=== PATIENT | female | born 1995 | race Two or more races ===

== ENCOUNTER 2018-06-23 16:50 | Inpatient (IN) | payer OTHER ==
[~2018-06-23 16:50] MED LIST: ACETAMINOPHEN500 M2 PO; ALBUTEROL1.25 MG/3 IH; ASA-EC81 MG PO; ASA325 MG PO; ASA81 MG PO; ATORVASTATIN CA10 MG PO; BIAXIN500 MG PO; CECLOR250 MG PO; CIPRO100 MG PO; CIPRO250 MG PO; CIPRO500 MG PO; COMMODE; DEMEROL50 MG/ML IJ; DEMEROL50 MG/ML PO; DEPEN250 MG PO; DURICEF500 MG PO; FLOMAX PO; GUAIATUSSIN AC118 ML PO; KETO10TA2 PO; LEVAQUIN500 MG PO; LIPITOR20 MG PO; LOVAZA1 G PO; LOVENOX30 MG/0.3 {1, null}; LOVENOX40 MG/0.4 SUBCUTANEO; MAALOX ADVANCE355 ML PO; MAPAP22.4 MG/0. PO; NAPR500T14 PO; NAPROSYN125 MG/5 M PO; NORVASC2.5 M1 PO; NORVASC5 MG PO; PEPCID20 MG PO; PERCOCET 10-321 EACH PO; PERCOCET 5-3251 EACH PO; PERCOCET 5/3251 TAB PO; PREDNISOLO15 MG/5 ML PO; PRENATAL CAPLE1 EACH PO; PROMETHAZINE D118 ML PO; SULFAMETHOXAZOL1 TA1 PO; SYNTHROID50 MCG PO; TOBREX3.5 G1 OP; TORADOL60 MG PO; TRAMADOL HCL50 MG PO; TUSNEL CAPLET1 EACH PO; TYGACIL50 MG/VIAL IV; TYLENOL 8 HOUR650 MG PO; TYLENOL EXTRA500 MG PO; TYLENOL-CODEINE1 TA1 PO; TYLENOL100 MG/ML PO; TYLENOL325 MG PO; WHEELCHAIR; ZANTAC150 M1 PO; ZANTAC150 M3 PO; ZANTAC150 MG PO; ZOVIRAX PO; [UNRECOGNIZED DRUG - OTHER] PO
[2018-08-24] MEDS ORDERED: ACETAMINOPHEN650 MG PO (09:45)
[2018-08-24] MEDS ORDERED: TYLENOL EXTRA500 MG PO (09:48)
[2018-12-29] MEDS ORDERED: NAPR500T14 PO (15:51)
[2019-03-31] MEDS ORDERED: SINGULAIR10 MG PO (14:22)
[2019-03-31] MEDS ORDERED: ERYTHROMYCIN OPH1 GM OP (14:22)
[2019-06-08] MEDS ORDERED: AMOX1TAB5 PO (09:33)
== END 2019-05-27 15:51 | disposition home or self-care (01) | DRG 305 ==
LOC: OB/GYN 16:50 → LDR 07-29 08:33 → OB/GYN 07-29 09:39 → LDR 07-29 09:39 → OB/GYN 07-30 11:55 → LDR 08-03 09:22 → OB/GYN 08-03 11:19 → LDR 08-03 11:19 → OB/GYN 12-17 14:48
DX: I11.9 Hypertensive heart disease without heart failure (principal)

== ENCOUNTER → 2019-06-07 16:05 | Inpatient (IN) | payer OTHER ==
[~2019-06-07 16:05] MED LIST changes: +ACETAMINOPHEN650 MG PO; +AMOX1TAB5 PO; +AMOXICILLIN250 MG PO; +ERYTHROMYCIN OPH1 GM OP; +SINGULAIR 10MG10 MG PO; +SINGULAIR10 MG PO
== END | disposition home or self-care (01) | DRG 293 ==
LOC: MEDI 06-19 11:54 → EDBD 06-19 11:54 → SURH 06-19 11:54 → MEDI 06-25 10:14 → EDBD 07-17 15:14 → MEDI 12-26 10:42 → SURH 01-07 14:00 → OB/GYN 10-14 10:15
DX: I11.0 Hypertensive heart disease with heart failure (principal)

== ENCOUNTER 2019-07-23 17:17 | Emergency (ER) | payer OTHER | END 2019-07-23 17:24 | disposition left against medical advice (07) | LOC: ER 17:17 | DX: Z53.20 Procedure and treatment not carried out because of patient's decision for unspecified reasons (principal) ==

== ENCOUNTER 2019-10-14 15:56 | Inpatient (IN) | payer OTHER ==
[~2019-10-14 15:56] MED LIST changes: +PEPCID AC20 MG PO
[2020-03-01] MEDS ORDERED: ULTRAM50 MG PO (10:39)
[2020-03-01] MEDS ORDERED: CLARITIN10 MG PO (10:40)
== END 2020-04-24 08:39 | disposition home or self-care (01) | DRG 179 ==
LOC: OB/GYN 15:56 → EDBD 11-02 15:05 → OB/GYN 11-02 15:05 → PED 04-04 13:58 → OB/GYN 04-04 13:58 → EDBD 04-24 08:39 → EDSEX 04-24 08:39 → OB/GYN 04-24 08:39
PROC: 3E0F7GC Introduction of Other Therapeutic Substance into Respiratory Tract, Via Natural or Artificial Opening (ICD-10-PCS; principal; 2020-04-04)
DX: J15.5 Pneumonia due to Escherichia coli (principal)

== ENCOUNTER 2019-11-05 13:04 | Inpatient (IN) | payer OTHER ==
[2020-03-01] MEDS ORDERED: ULTRAM50 MG PO (10:39)
[2020-03-01] MEDS ORDERED: CLARITIN10 MG PO (10:40)
[2020-05-02] MEDS ORDERED: TOBREX3.5 G1 (15:18)
== END 2020-05-16 08:27 | disposition home or self-care (01) | DRG 690 ==
LOC: OB/GYN → EDBD → EDSEX → EDBD 13:04 → OB/GYN 13:04
PROC: 0T9B70Z Drainage of Bladder with Drainage Device, Via Natural or Artificial Opening (ICD-10-PCS; principal; 2020-05-14)
DX: N39.0 Urinary tract infection, site not specified (principal); E11.9 Type 2 diabetes mellitus without complications

== ENCOUNTER 2020-05-02 15:09 | Inpatient (IN) | payer OTHER ==
[~2020-05-02 15:09] MED LIST changes: +CLARITIN10 MG PO; +ULTRAM50 MG PO
[2020-05-02] MEDS ORDERED: TOBREX3.5 G1 (15:18)
== END 2020-05-05 08:34 | disposition home or self-care (01) | DRG 639 ==
LOC: OB/GYN 15:09 → MEDJ 15:09 → OB/GYN 05-05 08:34
DX: E11.65 Type 2 diabetes mellitus with hyperglycemia (principal); I10 Essential (primary) hypertension

== ENCOUNTER 2020-05-30 15:06 | Inpatient (IN) | payer OTHER ==
[~2020-05-30 15:06] MED LIST changes: +TOBREX3.5 G1
[2020-05-30] MEDS ORDERED: TRAMADOL HCL50 MG PO (15:21)
== END 2020-06-02 14:19 | disposition home or self-care (01) | DRG 202 ==
LOC: OB/GYN 15:06
DX: J45.901 Unspecified asthma with (acute) exacerbation (principal); U07.1 COVID-19; J80 Acute respiratory distress syndrome

== ENCOUNTER 2020-08-15 16:46 | Emergency (ER) | payer OTHER ==
[~2020-08-15 16:46] MED LIST changes: +KEPPRA500 MG PO; +SPIRIVA RESPIMAT4 G1 IH; +ZOCOR80 MG PO
== END 2020-08-15 17:03 | disposition left against medical advice (07) ==
LOC: ER 16:46
DX: Z53.20 Procedure and treatment not carried out because of patient's decision for unspecified reasons (principal)

== ENCOUNTER → 2022-04-03 09:58 | Inpatient (IN) | payer OTHER ==
[~2022-04-03] VITALS: Ht 167.6 cm; Wt 90.7 kg
[~2022-04-03 09:58] MED LIST changes: +MORPHINE SULFAT60 M3 PO; +MS CONTIN15 M1 PO; +OXYGENTANK NASAL; +SYNTHROID75 MCG PO; +[UNRECOGNIZED DRUG - SUPPLY] NASAL
== END | disposition home or self-care (01) | DRG 812 ==
LOC: OB/GYN 06-14 06:15
DX: D64.89 Other specified anemias (principal); E03.8 Other specified hypothyroidism

== ENCOUNTER → 2022-07-09 17:23 | Emergency (ER) | payer OTHER | END | disposition home or self-care (01) | LOC: EDBD 05-15 13:46 → ER 05-15 13:46 → CIR.AMB 01-31 08:46 → EDSEX 05-19 09:00 → ER 05-19 09:00 → EDBD 05-19 09:00 → ER 08-03 08:00 → EDSEX 08-03 08:00 → EDBD 08-03 08:00 → ER 08-14 06:00 → EDBD 10:45 → ER 10:45 | DX: Z53.21 Procedure and treatment not carried out due to patient leaving prior to being seen by health care provider (principal) ==